=== PATIENT | female | born 1985 | race Caucasian/White ===

== ENCOUNTER 2017-01-16 02:22 | Emergency (ER) | payer BC ==
--- NOTE | ~2017-01-16 | US67 ---
[facility] A Service of [facility] RADIOLOGY TEXT RESULTS PATIENT: SARA VERMA LOCATION: [facility] : 81 UNIT #: [id number] AGE: [address]: Loni Perea MD SEX: F ORDER DR: [id number] [facility] [address] [place], [place] [address] [id number] E MR#: [id number] Acc #: [id number] NAME: SARA VERMA : 1985 SEX: F STUDY DATE/TIME: 01/16/2017 7:41 UNIT: [facility] ROOM: STUDY DESCRIPTION: Gallbladder Attending Physician: Loni Perea M.D. Ordering Physician: Rustam Tay M.D. Primary Care Physician: No Primary Care Physician MEDICAL IMAGING REPORT This report is preliminary unless electronic signature is present EXAM Gallbladder ultrasound. INDICATION Abdomen pain for 8 hours. FINDINGS The pancreas is normal in appearance. The liver is normal in echogenicity and size. The portal vein is patent with flow into the liver. The right kidney is 9.3 cm in length and appears normal. The gallbladder is adequately distended and there is a small echogenic shadowing structure in the gallbladder consistent with a small stone measuring a few millimeters in diameter. Common bile duct is prominent measuring 12 mm in diameter. IMPRESSION 1. At least 1 small stone is visible in the gallbladder and it is mobile. 2. Although there is no intrahepatic biliary distension visible, the extrahepatic bile ducts are prominent measuring 10-12 mm in diameter. 3. Otherwise, the study is normal. Dictated by... Harshad Wheatley M.D. THIS IS AN ELECTRONICALLY VERIFIED REPORT Harshad Wheatley M.D. at 01/16/2017 2:34 PM BERTO/faraz TD: 01/16/2017 14:24 JOB #: [id number] [facility] A Service [facility] RADIOLOGY TEXT RESULTS PATIENT: SARA VERMA LOCATION: [facility] : 81 UNIT #: [id number] AGE: [address]: Loni Perea MD SEX: F ORDER DR: MEDICAL IMAGING REPORT Page 1 of 1 COPY
--- NOTE | ~2017-01-16 | EKG ---
PATIENT: SARA VERMA UNIT #: [id number] Ventricular Rate: 68 BPM Atrial Rate: 68 BPM P-R Interval: 116 ms QRS Duration: 92 ms Q-T Interval: 392 ms QTC Calculation(Bezet): 416 ms P [place]: 53 degrees Calculated R [place]: 9 degrees Calculated T [place]: 37 degrees Diagnosis Line: Normal sinus rhythm Diagnosis Line: Normal ECG Diagnosis Line: No previous ECGs available Diagnosis Line: Confirmed by MAX MONROE MD ([id number]) on Diagnosis Line: 01/16/2017 10:16:07 PM INTERPRETING MD: ANA ROSA
--- NOTE | ~2017-01-16 | CR72 ---
[facility] A Service of [facility] RADIOLOGY TEXT RESULTS PATIENT: SARA VERMA LOCATION: [facility] : 83 UNIT #: [id number] AGE: [address]: Loni Perea MD SEX: F ORDER DR: [id number] [facility] [address] [place], [place] [address] [id number] E MR#: [id number] Acc #: [id number] NAME: SARA VERMA : 1985 SEX: F STUDY DATE/TIME: 01/16/2017 3:40 UNIT: [facility] ROOM: STUDY DESCRIPTION: CR Chest Single View Portable Attending Physician: Loni Perea M.D. Ordering Physician: Rustam Tay M.D. Primary Care Physician: No Primary Care Physician MEDICAL IMAGING REPORT This report is preliminary unless electronic signature is present EXAM Chest x-ray, 01/16/2017. HISTORY 31-year-old female in the ED complaining of new onset mid to lower chest pain beginning tonight prior to arrival. TECHNIQUE AP portable upright chest x-ray. FINDINGS The examination is negative. The lungs are expanded and clear. Heart size and pulmonary vascularity are normal. No visible pulmonary infiltrate, pneumothorax, or pleural effusion. IMPRESSION Negative chest. Dictated by... Janak Garcia M.D. THIS IS AN ELECTRONICALLY VERIFIED REPORT Janak Garcia M.D. at 01/16/2017 9:56 PM RGW/faraz TD: 01/16/2017 12:06 JOB #: [id number] MEDICAL IMAGING REPORT Page 1 of 1 COPY
[2017-01-16 03:34] LABS: POC - CKMB <1.0 ng/mL (0.0-7.9); POC - TROPONIN <0.05 ng/mL (<=0.05)
[2017-01-16 03:58] LABS: BASOPHIL# 0.1 X10e3 (0-0.3); BASOPHIL% 0.5 % (0-2.5); EOSINOPHIL# 0.3 X10e3 (0-0.7); EOSINOPHIL% 2.4 % (0.0-7.0); HEMATOCRIT 44.4 % (35.0-45.0); HEMOGLOBIN 14.6 gm/dL (12.0-16.0); LYMPHOCYTE# 2.1 X10e3 (1.0-3.5); LYMPHOCYTE% 16.7 % (17.0-45.0); MEAN CORPUSCULAR HEMOGLOBIN 29.7 PG (28-34); MEAN CORPUSCULAR HGB CONC 32.9 g/dL (30-36); MEAN PLATELET VOLUME 9.9 FL (6.5-11.5); MONOCYTE# 0.6 X10e3 (0-1.0); MONOCYTE% 5.2 % (3.0-12.0); NEUTROPHIL# 9.3 X10e3 (1.5-7.1); NEUTROPHIL% 75.2 % (40-75); PLATELET COUNT 204 X10e3 (140-420); RED BLOOD COUNT 4.93 X10e (3.90-5.30); RED CELL DISTRIBUTION WIDTH 13.3 % (11.0-15.5); WHITE BLOOD COUNT 12.3 X10e3 (4.0-10.5)
[2017-01-16 04:00] LABS: DIFF IND NO
[2017-01-16 04:20] LABS: ALBUMIN SERUM 4.5 g/dL (3.5-5.0); BILIRUBIN, DIRECT 0.1 mg/dL (0.0-0.2); BILIRUBIN,INDIRECT 0.8 mg/dL (0.0-0.9); BILIRUBIN,TOTAL 0.9 mg/dL (0.2-2.0); BUN/CREATININE RATIO 14.54; CALCIUM SERUM 9.2 mg/dL (8.4-10.2); CREATININE SERUM 1.1 mg/dL (0.6-1.4); GLOM FILT RATE Estimated 65.9 mL/min (>60); POTASSIUM 3.6 mmol/L (3.5-5.1); PROTEIN TOTAL SERUM 7.1 g/dL (6.0-8.3)
== END 2017-01-16 10:04 | disposition home or self-care (01) ==
LOC: CED 02:22
PROVIDERS: Emergency Medicine
DX: K80.70 Calculus of gallbladder and bile duct without cholecystitis without obstruction (principal)
CPT/HCPCS: 36415; 71010; 76705; 80048; 80076; 82553; 83690; 84484; 84703; 85025; 93005; 96374; 99284; J2270; J2405